=== PATIENT | male | born 1965 | race Caucasian/White ===

== ENCOUNTER 2016-12-05 14:04 | Emergency (ER) | payer OTHER ==
[2016-12-05 14:18] VITALS: BMI 30.8
[2016-12-05 14:21] VITALS: RESP 18; TEMP 97.9
[2016-12-05 14:42] VITALS: O2SAT 98
[2016-12-05] MEDS ORDERED: Lidocaine 1% w Epi 1:100,000 Inj INJ ONE (14:49)
[2016-12-05] MEDS ORDERED: Bacitracin 500 Units/gm Oint Foilpak UD ONE (14:52)
--- NOTE | 2016-12-05 15:07 | C.PDOC ---
History Of Present Illness 51 yr old male presents to the ER stating that he hit his head on the trunk of the car. Patient denies LOC, fall, vision changes, chest pain, SOB, nausea, vomiting, light headedness, back pain, neck pain, headache, weakness or numbness. Patient notes he was recently diagnosed with borderline HTN and his blood pressure is being monitored by his PMD and by himself at home. Time Seen by Provider: 12/05/16 14:20 Chief Complaint (Nursing): Abnormal Skin Integrity History Per: Patient History/Exam Limitations: no limitations Onset/Duration Of Symptoms: Sudden Onset ([facility]) Past Medical History Reviewed: Historical Data, Nursing Documentation, Vital Signs Vital Signs: Last Vital Signs Temp 97.9 F 12/05/16 14:19 Pulse 74 12/05/16 15:10 Resp 18 12/05/16 15:10 BP 158/93 H 12/05/16 15:10 Pulse Ox 98 12/05/16 15:47 - Medical History PMH: Bronchitis, Diverticulitis, Hiatal Hernia, HTN Surgical History: Hernia Repair - [facility] COLONOSCOPY (07/25/13) Family History: States: No Known Family Hx - Social History Hx Alcohol Use: Yes Hx Substance Use: No - Immunization History Hx Tetanus Toxoid Vaccination: No Hx Influenza Vaccination: No Hx Pneumococcal Vaccination: No Review Of Systems Except As Marked, All Systems Reviewed And Found Negative. Eyes: Negative for: Vision Change Cardiovascular: Negative for: Chest Pain, Light Headedness Respiratory: Negative for: Shortness of Breath Gastrointestinal: Negative for: Nausea, Vomiting Musculoskeletal: Negative for: Neck Pain, Back Pain Neurological: Negative for: Weakness, Numbness, Headache Physical Exam - Physical Exam Appears: Non-toxic, No Acute Distress Skin: Warm, Dry, No Rash Head: Normacephalic, Laceration (C shaped laceration, 2cm, to the right side, just above the temporal area. ) Eye(s): bilateral: Normal Inspection, PERRL, EOMI Ear(s): Bilateral: Normal Nose: Normal Oral Mucosa: Moist Throat: Normal, No Erythema, No Exudate Neck: Normal, Normal ROM, Supple Chest: Symmetrical, No Tenderness Cardiovascular: Rhythm Regular Respiratory: Normal Breath Sounds, No Rales, No Rhonchi, No Stridor, No Wheezing Extremity: Normal ROM, No Swelling Neurological/Psych: Oriented x3, Normal Speech, Normal Cognition, Normal Cranial Nerves, Normal Motor, Normal Sensation ED Course And Treatment O2 Sat by Pulse Oximetry: 98 Progress Note: Discussed risks and benefits of CT, agreed upon no CT at this time. Patient is instructed to follow up with PMD for his blood pressure and discussed risks of uncontrolled HTN. Discussed wound care and head injury signs of concerns. Laceration - Laceration Repair Right temporal area Wound Length (In cm): 2 Description Of Wound: Irregular (C Shaped) Wound Cleansed With: Betadine, Sterile Saline Anesthesia: Lidocaine 1%, With Epi Wound Examination: Irrigated With Saline, No FB With Wound Exploration, No Tendon Injury With Wound Exploration Wound Closure: [place] (2) Wound Complexity: Simple Disposition - Disposition Referrals: Bayron Parsons MD [Primary Care Provider] - Disposition: HOME/ ROUTINE Disposition Time: 15:05 Condition: GOOD Additional Instructions: Watch for signs of concern for head injury, including severe headache, persistent vomiting and difficulty wakening. Watch for signs of concern for infection including redness, swelling, and discharge. Staple removal in 7 days. Your blood pressure was high today, have your blood pressure repeated in 2-3 days with your doctor. Instructions: Head Injury (ED) - Clinical Impression Clinical Impression: Scalp laceration, Hypertension - PA / DIRECTOR EXTERNAL COMMUNICATIONS / Resident Statement MD/DO has reviewed & agrees with the documentation as recorded. - Scribe Statement The provider has reviewed the documentation as recorded by the Scribe Leatha Aguila All medical record entries made by the Scribe were at my direction and personally dictated by me. I have reviewed the chart and agree that the record accurately reflects my personal performance of the history, physical exam, medical decision making, and the department course for this patient. I have also personally directed, reviewed, and agree with the discharge instructions and disposition.
[2016-12-05 15:11] VITALS: BP 158/93; PULSE 74
== END 2016-12-05 15:20 | disposition home or self-care (01) ==
LOC: C.ER 14:04 → SUPCPDRO 14:04 → C.ER 15:20
DX: S01.81XA Laceration without foreign body of other part of head, initial encounter (principal); W22.8XXA Striking against or struck by other objects, initial encounter; Y93.89 Activity, other specified; Y92.410 Unspecified street and highway as the place of occurrence of the external cause